=== PATIENT | female | born 1995 | race Caucasian/White ===

== ENCOUNTER 2023-11-04 11:11 | Outpatient (CLI) | payer OTHER ==
[2023-11-04 11:23] LABS: HCT - HEMATOCRIT 35.8 % (37.0-47.0); HGB - HEMOGLOBIN 10.9 g/dL (12.0-16.0); MEAN CORPUSCULAR HEMOGLOBIN 24.7 pg (27.0-31.0); MEAN CORPUSCULAR HGB CONC 30.4 g/dL (32.0-36.0); MEAN PLATELET VOLUME 8.8 fL (7.9-10.8); RED BLOOD COUNT 4.42 10^6/uL (4.20-5.40); WHITE BLOOD COUNT 3.7 x10^3/uL (4.8-10.8)
[2023-11-04 14:34] LABS: THYROID STIMULATING HORMONE 1.11 uIU/mL (0.34-5.60)
[2023-11-04 14:37] LABS: FERRITIN 5.5 ng/mL (11.0-306.8)
== END 2023-11-04 11:12 | disposition home or self-care (01) ==
LOC: LAB 11:11
PROVIDERS: ATTEND Nurse Practitioner
DX: R53.83 Other fatigue (principal); Z31.69 Encounter for other general counseling and advice on procreation
CPT/HCPCS: 36415; 82728; 84443; 85027; 86762; 86787

== ENCOUNTER 2024-08-18 10:48 | Outpatient (CLI) | payer OTHER ==
[2024-08-18 14:47] LABS: BASOPHILS % (AUTO) 0.5 %; EOSINOPHILS # (AUTO) 0.1 10^3/uL (0.0-0.7); EOSINOPHILS % (AUTO) 1.2 %; HCT - HEMATOCRIT 40.8 % (37.0-47.0); HGB - HEMOGLOBIN 13.1 g/dL (12.0-16.0); LYMPHOCYTES % (AUTO) 46.7 %; MEAN CORPUSCULAR HEMOGLOBIN 29.8 pg (27.0-31.0); MEAN CORPUSCULAR HGB CONC 32.1 g/dL (32.0-36.0); MEAN CORPUSCULAR VOLUME 92.7 fL (81.0-99.0); MEAN PLATELET VOLUME 9.5 fL (7.9-10.8); MONOCYTES # (AUTO) 0.4 10^3/uL (0.0-1.0); MONOCYTES % (AUTO) 9.5 %; NEUTROPHILS # (AUTO) 1.8 10^3/uL (1.5-6.6); NEUTROPHILS % (AUTO) 41.9 %; PLT - PLATELET COUNT 259 10^3/uL (130-450); RED CELL DISTRIBUTION WIDTH 12.4 % (12.0-15.0); WHITE BLOOD COUNT 4.2 x10^3/uL (4.8-10.8)
== END 2024-08-18 10:49 | disposition home or self-care (01) ==
LOC: LAB.S 10:48
PROVIDERS: ATTEND Nurse Practitioner
DX: R53.83 Other fatigue (principal)
CPT/HCPCS: 36415; 82728; 85025